=== PATIENT | female | born 1960 | race Caucasian/White ===

== ENCOUNTER → 2016-10-30 | Outpatient (CLI) | payer BC, MEDICAID ==
--- NOTE | 2016-10-30 17:31 | DX ---
PA and Lateral Chest Clinical Indications: Cough; intermittent asthma exacerbation in a 56-year-old female; no previous s tudies are available for comparison. Findings: No focal pulmonary consolidation is identified. Mild peribronchial thickening is noted. The heart and pulmonary vessels are normal. There are no pleural effusions and no pneumothorax. The claudy zahira are unremarkable for this age. Impression: Mild peribronchial thickening is seen which may reflect chronic reactive airways disease with no superimposed acute abnormality identified.
== END ==
LOC: CIMAGING 12:02
PROVIDERS: ATTEND Family Medicine
DX: R05 Cough (principal); J45.21 Mild intermittent asthma with (acute) exacerbation
CPT/HCPCS: 71020-PO